=== PATIENT | female | born 1930 | race Two or more races ===

== ENCOUNTER 2018-11-04 17:36 | Emergency (ER) | payer MEDICARE, OTHER ==
[~2018-11-04] VITALS: Ht 162.6 cm; Wt 45.9 kg
[2018-11-04 17:45] VITALS: BP 121/82
== END 2018-11-04 19:25 | disposition home or self-care (01) ==
LOC: ED 19:19
DX: S43.421A Sprain of right rotator cuff capsule, initial encounter (principal); S40.011A Contusion of right shoulder, initial encounter; W22.8XXA Striking against or struck by other objects, initial encounter; Y93.89 Activity, other specified; Y92.89 Other specified places as the place of occurrence of the external cause; Y99.8 Other external cause status
CPT/HCPCS: 99283

== ENCOUNTER 2020-05-26 09:28 | Emergency (ER) | payer MEDICARE, OTHER ==
[~2020-05-26] VITALS: Ht 162.6 cm; Wt 38.0 kg
[~2020-05-26 09:28] MED LIST: ALBUTEROL INH; HTN MED; PLAVIX PO; STATIN
--- NOTE | 2020-05-26 09:50 | NUR ---
Pt is an 89f brought in by son for glf last night. Pt lives alone and fell on her dog. She is complaining of left ankle and hip pain. She is able to bear weight but is unstable. Pt in gown and resting comfortably in bed with warm blankets provided. Cycling vitals and continuous spo2, call light within reach. Provider has been to bedside for evaluation.
--- NOTE | 2020-05-26 10:17 | NUR ---
PT TO [facility] AT BEDSIDE. BROUGHT PT MEDICATIONS FOR UPDATE
[2020-05-26] MEDS ORDERED: DULO30CA2 PO (10:18)
[2020-05-26] MEDS ORDERED: CLOP75TA PO (10:19)
[2020-05-26] MEDS ORDERED: PANT40TA6 PO (10:20)
--- NOTE | 2020-05-26 10:21 | NUR ---
PATIENT BACK FROM XRAY, RESTING COMFORTABLY, SON JACK AT BEDSIDE. CALL LIGHT WITHIN REACH. MEDICATIONS UPDATED.
--- NOTE | 2020-05-26 10:58 | NUR ---
[employer]IRCAST SPLINT APPLIED, PT DOES NOT HAVE WALKER AT HOME, REQUESTED ONE FROM [facility].
[2020-05-26 11:30] VITALS: BP 139/85
--- NOTE | 2020-05-26 11:33 | NUR ---
Patient/SON given discharge instructions and they have confirmed that they understand the instructions. Patient ambulatory WITH WALKER with steady gait.
== END 2020-05-26 11:34 | disposition home or self-care (01) ==
LOC: ED 10:04
DX: S93.402A Sprain of unspecified ligament of left ankle, initial encounter (principal); S70.02XA Contusion of left hip, initial encounter; J44.9 Chronic obstructive pulmonary disease, unspecified; F17.200 Nicotine dependence, unspecified, uncomplicated; W01.0XXA Fall on same level from slipping, tripping and stumbling without subsequent striking against object, initial encounter; Y93.89 Activity, other specified; Y92.098 Other place in other non-institutional residence as the place of occurrence of the external cause; Y99.8 Other external cause status
CPT/HCPCS: 99284

== ENCOUNTER 2020-09-05 18:22 | Emergency (ER) | payer MEDICARE, OTHER ==
[~2020-09-05] VITALS: Ht 154.9 cm; Wt 42.1 kg
[~2020-09-05 18:22] MED LIST changes: +CLOP75TA PO; +DULO30CA2 PO; +PANT40TA6 PO
--- NOTE | 2020-09-05 18:59 | NUR ---
PT AMBULATED TO ROOM FROM TRIAGE. PT CO DIARRHEA X1 WEEK AND HAD ONE EPISODE OF VOMITING TODAY. PT WENT TO , BUT HAD ELEVATED BP AND WAS SENT TO THE ER. PT STATED THAT SHE HAS BEEN OUT OF HER BP MEDS FOR ABOUT A MONTH NOW. PT DENIES ANY ABDOMINAL PAIN, FEVER OR BLOODY STOOLS.
--- NOTE | 2020-09-05 19:30 | NUR ---
PT UNABLE TO PROVIDE STOOL SAMPLE AT THIS TIME.
[2020-09-05 19:33] LABS: BASOPHILS % (AUTO) 0 % (0-1); EOSINOPHILS % (AUTO) 1 % (1-7); LYMPHOCYTES % (AUTO) 23 % (22-44); MEAN CORPUSCULAR HEMOGLOBIN 28.5 pg (27.0-34.8); MEAN CORPUSCULAR HGB CONC 32.4 g/dL (32.4-35.8); MEAN PLATELET VOLUME 9.3 fL (7.4-10.4); MONOCYTES % (AUTO) 7 % (2-9); NEUTROPHILS % (AUTO) 70 % (42-75); PLATELET COUNT 229 x10^3/uL (130-400); RED BLOOD COUNT 4.52 x10^6/uL (3.82-5.3); RED CELL DISTRIBUTION WIDTH 17.4 % (9.6-15.2)
[2020-09-05 19:37] LABS: MD NO
[2020-09-05 19:40] LABS: ALANINE AMINOTRANSFERASE 21 U/L (12-78); ALBUMIN 3.4 g/dL (3.4-5.0); ANION GAP 5 mmol/L (5-15); CALCIUM 8.8 mg/dL (8.5-10.1); CHLORIDE 112 mmol/L (98-107); CREATININE 0.69 mg/dL (0.55-1.02)
[2020-09-05 19:42] LABS: ALKALINE PHOSPHATASE 86 U/L (45-117); BILIRUBIN,TOTAL 0.3 mg/dL (0.2-1.0)
[2020-09-05] MEDS ORDERED: POTASSIUM CHLORIDE 20 MEQ TAB.ER.PRT ONE (20:19)
[2020-09-05] MEDS ORDERED: ENALAPRILAT 1.25 MG/ML, 1ML ONE (20:19)
[2020-09-05] MEDS ORDERED: ENALAPRILAT 1.25 MG/ML, 2ML IV ONE (20:30)
[2020-09-05] MEDS ORDERED: SODIUM CHLORIDE 0.9%, 500ML IVBOLUS ONE (20:30)
[2020-09-05] MEDS ORDERED: POTASSIUM CHLORIDE 40 MEQ in SODIUM CHLORIDE 0.9% 500 ML IV ONE (20:30)
[2020-09-05] MEDS ORDERED: POTASSIUM CHLORIDE 20 MEQ TAB.ER.PRT PO ONE (20:30)
--- NOTE | 2020-09-05 20:57 | NUR ---
RECEIVED REPORT FROM HALLIE.
[2020-09-05] MEDS ORDERED: ONDANSETRON 2MG/ML, 2ML ONE (21:00)
[2020-09-05] MEDS ORDERED: ONDANSETRON 2MG/ML, 2ML IVPush ONE (21:00)
[2020-09-05 21:47] VITALS: BP 140/74
--- NOTE | 2020-09-05 21:48 | NUR ---
PT RESTING ON GURKATERYNA IN NAD, DENIES N/V AT THIS TIME. VSS.
== END 2020-09-05 22:08 | disposition home or self-care (01) ==
LOC: ED 21:35
DX: R11.2 Nausea with vomiting, unspecified (principal); R19.7 Diarrhea, unspecified; I10 Essential (primary) hypertension; E87.6 Hypokalemia; R94.31 Abnormal electrocardiogram [ECG] [EKG]
CPT/HCPCS: 36415; 80053; 83735; 85025; 93005; 96365; 96375; 99285; J2405; J3480; J7040; 96361

== ENCOUNTER 2020-09-07 10:36 | Observation (INO) | payer MEDICARE, OTHER ==
[~2020-09-07] VITALS: Ht 162.6 cm; Wt 49.9 kg
[2020-09-07 11:56] LABS: BASOPHILS % (AUTO) 0 % (0-1); EOSINOPHILS % (AUTO) 1 % (1-7); LYMPHOCYTES % (AUTO) 18 % (22-44); MEAN CORPUSCULAR HEMOGLOBIN 28.7 pg (27.0-34.8); MEAN CORPUSCULAR HGB CONC 32.4 g/dL (32.4-35.8); MEAN PLATELET VOLUME 8.8 fL (7.4-10.4); MONOCYTES % (AUTO) 8 % (2-9); NEUTROPHILS % (AUTO) 73 % (42-75); PLATELET COUNT 217 x10^3/uL (130-400); RED BLOOD COUNT 4.18 x10^6/uL (3.82-5.3); RED CELL DISTRIBUTION WIDTH 17.2 % (9.6-15.2)
[2020-09-07] MEDS ORDERED: CEFTRIAXONE 2 GM in DEXTROSE 5% 50 ML IVPB ONE (12:00)
[2020-09-07] MEDS ORDERED: AZITHROMYCIN 500 MG in SODIUM CHLORIDE 0.9% 250 ML IV ONE (12:00)
[2020-09-07 12:05] LABS: ALBUMIN 3.2 g/dL (3.4-5.0); CALCIUM 8.8 mg/dL (8.5-10.1); CHLORIDE 112 mmol/L (98-107); MD NO
[2020-09-07 12:11] LABS: ALANINE AMINOTRANSFERASE 20 U/L (12-78); ALKALINE PHOSPHATASE 80 U/L (45-117); BILIRUBIN,TOTAL 0.4 mg/dL (0.2-1.0); CREATININE 0.61 mg/dL (0.55-1.02); TOTAL PROTEIN 6.7 g/dL (6.4-8.2); TROPONIN I 0.036 ng/mL (0.000-0.045)
[2020-09-07 12:17] LABS: ANION GAP 6 mmol/L (5-15)
[2020-09-07] MEDS ORDERED: SODIUM CHLORIDE FLUSH 10ML SYR IVF PRN (13:30)
[2020-09-07] MEDS ORDERED: morphine SULFATE 10 MG/ML, 1ML IV PRN (14:00)
[2020-09-07] MEDS ORDERED: NITROGLYCERIN 0.4 MG BOTTLE (25 TABS) SL PRN (14:00)
[2020-09-07] MEDS ORDERED: NITROGLYCERIN 0.4 MG/SPRAY SL PRN (14:00)
[2020-09-07] MEDS ORDERED: ACETAMINOPHEN 325 MG TABLET PO PRN (14:00)
[2020-09-07] MEDS ORDERED: ASPIRIN 325 MG TABLET EC PO ONE (14:00)
[2020-09-07] MEDS ORDERED: SODIUM CHLORIDE 0.9% 1,000 ML IV SCH (15:00)
[2020-09-07 15:10] VITALS: BP 125/71
[2020-09-07] MEDS: ENOXAPARIN 30 MG/0.3 ML SQ SCH (16:37)
[2020-09-07 17:28] LABS: TROPONIN I 0.035 ng/mL (0.000-0.045)
[2020-09-07] MEDS ORDERED: LISI10TA19 PO (18:42)
[2020-09-07] MEDS ORDERED: FLUT10.6 INH (18:42)
[2020-09-07] MEDS: SODIUM CHLORIDE FLUSH 10ML SYR IVF SCH (19:48)
[2020-09-07 20:00] VITALS: BP 129/71
[2020-09-07 21:32] LABS: TROPONIN I 0.036 ng/mL (0.000-0.045)
[2020-09-08 02:00] VITALS: BP 152/86
[2020-09-08 05:13] LABS: ALANINE AMINOTRANSFERASE 19 U/L (12-78); ALBUMIN 2.7 g/dL (3.4-5.0); ANION GAP 4 mmol/L (5-15); CALCIUM 8.2 mg/dL (8.5-10.1); CHLORIDE 113 mmol/L (98-107); CREATININE 0.63 mg/dL (0.55-1.02)
[2020-09-08 05:16] LABS: ALKALINE PHOSPHATASE 71 U/L (45-117); BILIRUBIN,TOTAL 0.3 mg/dL (0.2-1.0); CHOL/HDL RATIO 3.2; CHOLESTEROL, TOTAL 152 mg/dL (140-239); HDL CHOL % 32 % (28-40); HDL CHOLESTEROL (DIRECT) 48 mg/dL (40-60); LDL CHOLESTEROL,CALCULATED 91 mg/dL (54-169); LDL/HDL RATIO 1.9 (0.5-3.0); TOTAL PROTEIN 5.7 g/dL (6.4-8.2); TRIGLYCERIDES 63 mg/dL (50-200); VLDL CHOLESTEROL 13 mg/dL (0-25)
[2020-09-08] MEDS ORDERED: ASPIRIN 325 MG TABLET EC PO SCH (06:00)
[2020-09-08] MEDS ORDERED: PANTOPRAZOLE 40MG TABLET PO SCH (06:00)
[2020-09-08] MEDS ORDERED: CEFTRIAXONE 1,000 MG IM SCH (08:00)
[2020-09-08] MEDS ORDERED: CEFTRIAXONE 1,000 MG in DEXTROSE 5% 50 ML IVPB SCH (08:00)
[2020-09-08 08:15] VITALS: BP 147/92
[2020-09-08] MEDS ORDERED: REGADENOSON 0.4 MG/5 ML SYRINGE ONE (08:28)
[2020-09-08] MEDS: SODIUM CHLORIDE FLUSH 10ML SYR IVF SCH (09:00)
[2020-09-08] MEDS ORDERED: CLOPIDOGREL 75 MG TABLET PO SCH (09:00)
[2020-09-08] MEDS ORDERED: DULOXETINE 30 MG CAPSULE.DR PO SCH (09:00)
[2020-09-08] MEDS ORDERED: LISINOPRIL 10 MG TABLET PO SCH (09:00)
[2020-09-08] MEDS ORDERED: NITR0.4T28 SL (13:01)
[2020-09-08] MEDS: ENOXAPARIN 30 MG/0.3 ML SQ SCH (13:58)
[2020-09-08] MEDS ORDERED: AMOX1TAB64 PO (14:51)
[2020-09-08 15:06] VITALS: BP 116/75
== END 2020-09-08 15:53 | disposition home or self-care (01) ==
LOC: ED 12:32 → INTOOBSV 13:18 → EDIP 13:18 → 5SO 14:46 → DCLOUNGE 09-08 15:23
PROVIDERS: ADMIT Internal Medicine; ATTEND Internal Medicine
DX: R07.89 Other chest pain (principal); J15.9 Unspecified bacterial pneumonia; J44.0 Chronic obstructive pulmonary disease with (acute) lower respiratory infection; K21.9 Gastro-esophageal reflux disease without esophagitis; I70.0 Atherosclerosis of aorta; I07.1 Rheumatic tricuspid insufficiency; I10 Essential (primary) hypertension; F32.9 Major depressive disorder, single episode, unspecified; Z79.899 Other long term (current) drug therapy; Z95.5 Presence of coronary angioplasty implant and graft
CPT/HCPCS: 36415; 71045; 78452; 80053; 80061; 83605; 83880; 84145; 84484; 85025; 87040; 93005; 93017; 93306; 96361; 96365; 96366; 96368; 96372; 99285; A9502; G0378; J0456; J0696; J1650; J2785; J7030; J7050